=== PATIENT | female | born 1980 | race Caucasian/White ===

== ENCOUNTER 2016-12-20 09:22 | Emergency (ER) | payer OTHER ==
[~2016-12-20] VITALS: Ht 165.1 cm; Wt 64.0 kg
[2016-12-20 09:30] VITALS: BP 110/78
[2016-12-20] MEDS ORDERED: HYDR-2758 PO (10:15)
[2016-12-20] MEDS ORDERED: NAPR500T PO (10:15)
--- NOTE | 2016-12-20 10:16 | PHYS DOC ---
Past History Past Medical History: No Pertinent History, Ovarian Cyst Past Surgical History: Cholecystectomy, Tubal ligation Additional Past Surgical Histo: exploratory laparoscopy secondary to ovarian cysts Smoking: Cigarettes, Less than 1pk/day Alcohol Use: None Drug Use: None Adult General Chief Complaint Chief Complaint: FOOT INJURY PAIN [facility] HPI This is a pleasant 36-year-old female with a one-week history of nontraumatic right foot pain that began spontaneously. 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 She denies overt does not remember any specific trauma traumatic injury but she says pain is gotten progressively worse as she ambulated last week or so. Patient denies any fevers, joint pains, chills, rashes history is extra transmitted diseases. Or direct trauma. She denies any numbness and tingling or weakness in her lower leg. She is that the pain is worse when she ambulates specifically puts direct pressure on the right foot. The [id number] medications other than Motrin with minimal improvement. She seen her primary care doctor who completed an x-ray on Wednesday demonstrating no specific fracture pattern. Patient is not training for any event denies any travel outside the country or additional medication use. Pain is presently a 7 of 10 which she walks a 5-10 at rest and it does get worse with range of motion and motion over the direct area of soft tissue swelling. In changes or rash. Review of Systems Review of Systems Constitutional: Denies fever or chills [] Eyes: Denies change in visual acuity, redness, or eye pain [] HENT: Denies nasal congestion or sore throat [] Respiratory: Denies cough or shortness of breath [] Cardiovascular: No additional information not addressed in HPI [] GI: Denies abdominal pain, nausea, vomiting, bloody stools or diarrhea [] : Denies dysuria or hematuria [] Musculoskeletal: She complains of lower right foot pain with local swelling. Integument: Denies rash or skin lesions [] Neurologic: Denies headache, focal weakness or sensory changes [] Endocrine: Denies polyuria or polydipsia [] Current Medications Current Medications Current Medications Medications (Trade) Dose Ordered Sig/Marlon Start Time Stop Time Status Last Admin Dose Admin Acetaminophen/ Hydrocodone Bitart (Lortab 5/325) 2 tab 1X ONCE 12/20/16 10:15 12/20/16 10:16 UNV Physical Exam Physical Exam Vital signs within normal limits Constitutional: Well developed, well nourished, no acute distress, non-toxic appearance. [] Cardiovascular:Heart rate regular rhythm, no murmur [] Lungs & Thorax: Bilateral breath sounds clear to auscultation [] Skin: Warm, dry, no erythema, no rash. [] Extremities: no cyanosis, no clubbing, patient demonstrates marked tenderness to palpation and mild soft tissue swelling noted over the lateral aspect of the right foot over the lateral cuneiform bones. She demonstrates great brisk +2 capillary refill, +2 peripheral pulses at the dorsalis pedis and posterior tibialis. She also demonstrates normal sensation to light touch and appropriate software technical lead over L2 S1 distribution. Neurologic: Alert and oriented X 3, normal motor function, normal sensory function, no focal deficits noted. [] Psychologic: Affect normal, judgement normal, mood normal. [] Current Patient Data Vital Signs Vital Signs Date Time Temp Pulse Resp B/P (MAP) Pulse Ox O2 Delivery O2 Flow Rate FiO2 12/20/16 09:30 97.9 95 16 100 Room Air EKG EKG [] Radiology/Procedures Radiology/Procedures [] Course & Med Decision Making Course & Med Decision Making Pertinent Labs and Imaging studies reviewed. (See chart for details)some mild soft tissue swelling to the lateral aspect of the foot over the cuneiform bones there is no tenderness over the fifth metatarsal obvious deformity there is no evidence of plantar fasciitis or tenderness over the kilos he will. Patient only had an x-ray done on Wednesday and I believe that an x-ray today as we discussed was unnecessary. I prescribed anti-inflammatories and sent for breakthrough pain as well as a hard shoe and podiatry follow-up. Impression: Right foot pain doubtful of dancers fracture or metatarsal fracture of the right foot. Doubtful of septic joint or reactive arthritis. disposition: PCP follow-up for podiatry referral provided pain medications and instructions to reduce swelling. [] Dragon Disclaimer Dragon Disclaimer This chart was dictated in whole or in part using Voice Recognition software in a busy, high-work load, and often noisy Emergency Department environment. It may contain unintended and wholly unrecognized errors or omissions. Departure Departure: Impression: Primary Impression: Foot pain, right Disposition: 01 HOME, SELF-CARE Condition: STABLE Referrals: REAL REEVES (PCP) Patient Instructions: Foot Sprain Additional Instructions: Foot pain from unclear etiology, I doubt circulatory problems or localized infection. I would advise that you follow-up with her primary care doctor for referral to podiatry for continued evaluation of your foot discomfort. I would encourage ice, elevation, rest for your wound and pain medication. Scripts Naproxen (NAPROSYN) 500 Mg Tablet 1 TAB PO BID, #20 TAB 1 Refill Prov: FELICITY SHIELDS MD 12/20/16 Hydrocodone Bit/Acetaminophen (HYDROCODONE-APAP 5-325 ) 1 Each Tablet 1 TAB PO PRN Q6HRS Y for PAIN for 5 Days, #10 TAB 0 Refills Prov: FELICITY SHIELDS MD 12/20/16 FELICITY SHIELDS MD Dec 20, 2016 10:15
[2016-12-20] MEDS ORDERED: HYDROcodone/APAP 5/325MG 1 TAB TABLET PO ONE (10:35)
== END 2016-12-20 10:41 | disposition home or self-care (01) ==
LOC: ER 09:22
DX: M79.671 Pain in right foot (principal); R22.41 Localized swelling, mass and lump, right lower limb; F17.210 Nicotine dependence, cigarettes, uncomplicated
CPT/HCPCS: 99283

== ENCOUNTER 2017-07-24 11:22 | Emergency (ER) | payer OTHER ==
[~2017-07-24 11:22] MED LIST: HYDR-2758 PO; NAPR-683 PO
[2017-07-24] MEDS ORDERED: PROCHLORPERAZINE 10 MG/2 ML VIAL. IM ONE (12:45)
[2017-07-24] MEDS ORDERED: diphenhydrAMINE 50 MG/ML VIAL IM ONE (12:45)
[2017-07-24] MEDS ORDERED: HALOPERIDOL LACT 5 MG/ML VIAL. IM ONE (12:45)
--- NOTE | 2017-07-24 13:37 | PHYS DOC ---
General Chief Complaint: HEADACHE Stated Complaint: MIGRAINE Time Seen by MD: 11:53 Problems: History of Present Illness Allergies: Coded Allergies: No Known Drug Allergies (Unverified , 12/20/16) Orders, Labs, Meds 1333: I rechecked the patient she states her headache is gone and her symptoms have completely resolved. She is requesting discharge home. Departure Time of Disposition: 13:36 Disposition: 01 HOME, SELF-CARE Diagnosis: recurrent migraine headache Condition: IMPROVED Patient Instructions: Recurrent Migraine Headache, [id number] Additional Instructions: Please review the patient education materials given by ED staff. Continue current medications. Follow-up with your doctor on Wednesday. Return to ED with new or changing symptoms. ARTURO MAXWELL DO Jul 24, 2017 13:37
[2017-07-24 13:40] VITALS: BP 109/66
== END 2017-07-24 13:40 | disposition home or self-care (01) ==
LOC: ER 11:22
DX: G43.909 Migraine, unspecified, not intractable, without status migrainosus (principal)
CPT/HCPCS: 96372; 99284; J0780; J1200

== ENCOUNTER 2017-11-14 12:08 | Emergency (ER) | payer OTHER ==
[~2017-11-14] VITALS: Ht 165.1 cm; Wt 66.1 kg
--- NOTE | 2017-11-14 12:47 | PHYS DOC ---
Past History Past Medical History: Migraines, Other Past Surgical History: Cholecystectomy, Tubal ligation Additional Past Surgical Histo: exploratory laparoscopy secondary to ovarian cysts Smoking: Cigarettes, Less than 1pk/day Alcohol Use: Occasionally Drug Use: None Adult General Chief Complaint Chief Complaint: BACK PAIN - NO INJURY HPI HPI 37-year-old female presents with low back pain that started yesterday. The patient does not recall any specific event, trauma, or overuse. She has not been lifting heavy objects. The pain is in her right low back at the top of her sacrum. It radiates down to her tailbone. Yesterday, she thought she might have slept wrong overnight and took ibuprofen and tried to ignore it. The pain increased throughout the day. The patient was able to sleep last night when she woke up this morning she could not straighten up completely and the pain was worse. She denies any loss of bowel or bladder. He has no paresthesias. She denies fever, chills, nausea, vomiting, constipation, diarrhea. He was feeling well prior to this event. He has no history of low back pain or trauma. She did have a dislocated hip due to childbirth 10 years ago. Review of Systems Review of Systems Constitutional: Denies fever or chills [] Eyes: Denies change in visual acuity, redness, or eye pain [] HENT: Denies nasal congestion or sore throat [] Respiratory: Denies cough or shortness of breath [] Cardiovascular: No additional information not addressed in HPI [] GI: Denies abdominal pain, nausea, vomiting, bloody stools or diarrhea [] : Denies dysuria or hematuria [] Musculoskeletal: low back and sacrum pain [] Integument: Denies rash or skin lesions [] Neurologic: Denies headache, focal weakness or sensory changes [] Endocrine: Denies polyuria or polydipsia [] All other systems were reviewed and found to be within normal limits, except as documented in this note. Allergies Allergies Allergies Coded Allergies Type Severity Reaction Last Updated Verified No Known Drug Allergies 12/20/16 No Physical Exam Physical Exam Constitutional: Well developed, well nourished, no acute distress, non-toxic appearance. [] HENT: Normocephalic, atraumatic, bilateral external ears normal, oropharynx moist, no oral exudates, nose normal. [] Eyes: PERRLA, EOMI, conjunctiva normal, no discharge. [] Neck: Normal range of motion, no tenderness, supple, no stridor. [] Cardiovascular:Heart rate regular rhythm, no murmur [] Lungs & Thorax: Bilateral breath sounds clear to auscultation [] Abdomen: Bowel sounds normal, soft, no tenderness, no masses, no pulsatile masses. [] Skin: Warm, dry, no erythema, no rash. [] Back: Bilateral muscle spasms of the lumbar spine worse L3-L5. Tenderness is worse over the bilateral sacroiliac joints. The sacroiliac space on the left is deeper than the right. [] Extremities: No tenderness, no cyanosis, no clubbing, ROM intact, no edema. [] Neurologic: Alert and oriented X 3, normal motor function, normal sensory function, no focal deficits noted. [] Psychologic: Affect normal, judgement normal, mood normal. [] Current Patient Data Vital Signs Vital Signs Date Time Temp Pulse Resp B/P (MAP) Pulse Ox O2 Delivery O2 Flow Rate FiO2 11/14/17 12:08 97.9 83 18 97 Room Air EKG EKG [] Radiology/Procedures Radiology/Procedures Sacroiliac joints. HISTORY: Low back pain, hip pain AP and oblique views were taken of the sac sacroiliac joints and pelvis. Pelvis appears intact without osseous abnormality. Hips appear unremarkable. Sacroiliac joints are normal without osseous abnormality. IMPRESSION: 1. Negative pelvis and sacroiliac joints. Electronically signed by: Rudy Rai MD (11/14/2017 1:14 PM) [facility][] Course & Med Decision Making Course & Med Decision Making Pertinent Labs and Imaging studies reviewed. (See chart for details) The patient's x-rays are negative for fracture or gross abnormal finding. I have given the patient Norflex IM in the ED and I will discharge her with Flexeril for muscle spasm and prednisone for anti-inflammatory. I will also give her a few [place] 5/325 for breakthrough pain. [] Dragon Disclaimer Dragon Disclaimer This electronic medical record was generated, in whole or in part, using a voice recognition dictation system. Departure Departure: Referrals: INEZ HUBBARD MD (PCP) Scripts Prednisone (PREDNISONE) 50 Mg Tablet 1 TAB PO DAILY, #5 TAB Prov: LILY CARTER DO 11/14/17 Cyclobenzaprine Hcl (CYCLOBENZAPRINE HCL) 10 Mg Tablet 1 TAB PO TID, #30 TAB Prov: LILY CARTER DO 11/14/17 Hydrocodone Bit/Acetaminophen (NORCO 5-325 TABLET) 1 Each Tablet 1 TAB PO PRN Q6HRS PRN for PAIN, #12 TAB 0 Refills Prov: LILY CARTER DO 11/14/17 LILY CARTER DO November 14, 2017 12:47
[2017-11-14] MEDS ORDERED: ORPHENADRINE CITRATE 60 MG/2 ML VIAL. IM ONE (13:00)
[2017-11-14 13:13] LABS: BILIRUBIN,URINE NEG (NEG); CLARITY,URINE CLEAR; COLOR,URINE YELLOW; GLUCOSE,URINE NEG (NEG)
[2017-11-14 13:14] LABS: BACTERIA,URINE FEW /HPF (0-FEW); NITRITE,URINE NEG (NEG); RBC,URINE 0 /HPF (0-2); SQUAMOUS EPITHELIAL CELL,UR OCC /LPF; UROBILINOGEN,URINE 0.2 mg/dL (0.2 mg/dL); WBC,URINE 0 /HPF (0-4)
--- NOTE | 2017-11-14 13:17 | RAD ---
Sacroiliac joints. HISTORY: Low back pain, hip pain AP and oblique views were taken of the sac sacroiliac joints and pelvis. Pelvis appears intact without osseous abnormality. Hips appear unremarkable. Sacroiliac joints are normal without osseous abnormality. IMPRESSION: 1. Negative pelvis and sacroiliac joints. Electronically signed by: Rudy Rai MD (11/14/2017 1:14 PM) [facility]
[2017-11-14] MEDS ORDERED: HYDR-971 PO (13:36)
[2017-11-14] MEDS ORDERED: PRED50TA PO (13:37)
[2017-11-14] MEDS ORDERED: CYCL-331 PO (13:37)
[2017-11-14 13:47] VITALS: BP 116/76
== END 2017-11-14 13:50 | disposition home or self-care (01) ==
LOC: ER 12:08
DX: M54.5 Low back pain (principal); G43.909 Migraine, unspecified, not intractable, without status migrainosus; F17.210 Nicotine dependence, cigarettes, uncomplicated; Z90.49 Acquired absence of other specified parts of digestive tract; Z98.51 Tubal ligation status
CPT/HCPCS: 72202; 81001; 81025; 96372; 99285; J2360